=== PATIENT | male | born 2005 | race Caucasian/White ===

== ENCOUNTER 2025-03-25 14:05 | Emergency (ER) | payer SELFPAY ==
[2025-03-25] VITALS (9 sets, daily range): BP systolic 109–166; BP diastolic 59–90; PULSE 88–108; RESP 18–24; TEMP 37.1; O2SAT 96–97; BMI 27.1
--- NOTE | 2025-03-25 14:15 | ED_ITS ---
HPI - Psych General Chief Complaint: Toxicology Problem Stated Complaint: Shrooms and Cocaine Time Seen by Provider: 03/25/25 14:05 History of Present Illness HPI Narrative: This is a 19-year-old male brought in by ambulance accompanied by law enforcement. History provided by EMS and the patient, reviewed law enforcement reports as well. Reportedly he was on [facility] today took cocaine and mushrooms this morning. He was agitated, combative attempting get into the water EMS was called he required restraints and IM Versed and was transported to the hospital. On arrival here is alert and cooperative. Denies suicidal ideation. Admits using mushrooms and cocaine. States recently had a diagnosis of autism. States he has a history of suicidal ideation and depression. Patient was seen at 1405, immediately on arrival Related Data Allergies Allergy/AdvReac Type Severity Reaction Status Date / Time No Known Drug Allergies Allergy Verified 03/25/25 14:22 Exam Narrative Exam Narrative: Alert and cooperative, anxious affect. Clothing is wet. Normocephalic and atraumatic pupils are equal and reactive slightly dilated Oral mucosa is moist Neck is supple Lungs are clear Heart sounds regular rhythm rate tachycardic no murmur gallop Abdomen is benign Denying hallucinations or suicidal ideation Thought process is linear Appears to have intact insight and judgment Initial Vital Signs Initial Vital Signs: Vital Signs Pulse Rate 108 H 03/25/25 14:16 Respiratory Rate 22 03/25/25 14:16 Pulse Oximetry 96 03/25/25 14:16 Course Orders Ordered: ED Orders 03/25/25 14:13 EKG-12 Lead Stat 03/25/25 14:25 CBC Auto Diff [Complete Blood Count AUTO DIFF] Stat CMP [Comprehensive Metabolic Panel] Stat ETOH [Ethanol (ETOH)] Stat TSH [Thyroid Stimulating Hormone] Stat 03/25/25 15:02 Urine Drug Screen, Rapid Stat 03/25/25 15:39 Consult to BANQUET STEWARD - Podiatric Foot [facility] Ankle Specialist Stat Discontinued Medications Olanzapine (Olanzapine Odt 10 Mg Tab) 10 mg PO NOW ONE Stop: 03/25/25 14:14 Last Admin: 03/25/25 14:27 Dose: 10 mg Documented By: SGF Reevaluation(s) Reevaluation #1: At 3:40 p.m., patient is alert and cooperative. Appropriate affect. Medically cleared we will request social work to evaluate. Vital Signs Vital signs: Vital Signs - 8 hr 03/25/25 14:16 03/25/25 14:17 03/25/25 14:17 Temperature Pulse Rate 108 H 107 H Respiratory Rate 22 18 Blood Pressure 142/85 H Pulse Oximetry 96 97 Oxygen Delivery Method 03/25/25 14:22 03/25/25 14:30 03/25/25 14:30 Temperature 98.8 F Pulse Rate 106 H 103 H Respiratory Rate 22 20 Blood Pressure 142/85 H 147/85 H Pulse Oximetry 96 97 Oxygen Delivery Method Room Air 03/25/25 15:00 03/25/25 15:00 03/25/25 15:30 Temperature Pulse Rate 106 H Respiratory Rate 18 Blood Pressure 120/59 L 109/62 Pulse Oximetry 96 Oxygen Delivery Method 03/25/25 15:30 03/25/25 16:00 03/25/25 16:00 Temperature Pulse Rate 93 H 88 Respiratory Rate 22 19 Blood Pressure 118/73 Pulse Oximetry 96 96 Oxygen Delivery Method 03/25/25 16:30 03/25/25 16:30 03/25/25 16:51 Temperature Pulse Rate 101 H Respiratory Rate 24 Blood Pressure 164/90 H 166/81 H Pulse Oximetry 97 Oxygen Delivery Method 03/25/25 16:51 Temperature Pulse Rate 100 H Respiratory Rate 23 Blood Pressure Pulse Oximetry Oxygen Delivery Method MDM - Psych Lab Data Lab results narrative: Ethanol is negative, urine drug screen positive for THC and cocaine. Chemistry show potassium of 3.1 probably not clinically significant in this setting. 03/25/25 14:25 03/25/25 14:25 Labs: Lab Results 03/25/25 03/25/25 Range/Units 14:25 15:02 WBC 8.5 (4.5-11.0) X10^3/uL RBC 5.17 (4.5-5.9) X10^6/uL Hgb 15.5 (13.5-17.5) g/dL Hct 45.2 (41-53) % MCV 87.6 (80-100) fL MCH 30.0 (26-34) PG MCHC 34.2 (30-36) % RDW 12.8 (11.6-14.8) % Plt Count 184 (150-400) X10^3/uL Neut % (Auto) 74.4 (50-75) % Lymph % (Auto) 18.1 L (25-40) % [place] % (Auto) 5.9 (3-14) % Eos % (Auto) 0.9 L (2-4) % Baso % (Auto) 0.7 (0-2) % Neut # (Auto) 6300 (6590-2244) /uL Lymph # (Auto) 1500 (4671-0449) /uL [place] # (Auto) 500 (0-900) /uL Eos # (Auto) 100 (0-450) /uL Baso # (Auto) 100 (0-100) /uL Sodium 140 (137-145) mmol/L Potassium 3.1 L (3.4-5.1) mmol/L Chloride 104 (98-107) mmol/L Carbon Dioxide 24 (22-32) mmol/L BUN 12 (9-20) mg/dL Creatinine 0.78 (0.66-1.25) mg/dL Estimated GFR > 60 (>60) mL/min BUN/Creatinine Ratio 15.4 (6-22) Glucose 135 H (70-99) mg/dL Calcium 9.2 (8.4-10.2) mg/dL Total Bilirubin 1.3 (0.2-1.3) mg/dL AST 36 (17-59) IU/L ALT 39 (<50) IU/L Alkaline Phosphatase 115 (38-126) U/L Total Protein 8.2 (6.3-8.2) g/dL Albumin 5.0 (3.5-5.0) g/dL Globulin 3.2 (1.7-4.1) g/dL Albumin/Globulin Ratio 1.6 (1.0-2.8) TSH 0.686 (0.47-4.68) uIU/mL U Opiates 300ng/mL cut Negative (Negative) Ur Oxycodone Screen Negative (Negative) Urine Methadone Screen Negative (Negative) Ur Barbiturates Screen Negative (Negative) U Tricyclic Antidepress Negative (Negative) Ur Phencyclidine Scrn Negative (Negative) Ur Amphetamines Screen Negative (Negative) U Methamphetamines Scrn Negative (Negative) Ur MDMA Scrn (Ecstasy) Negative (Negative) U Benzodiazepines Scrn Negative (Negative) Urine Cocaine Screen Positive H (Negative) U Marijuana (THC) Screen Positive H (Negative) Urine pH Normal (Normal) Urine Specific [place] Normal (Normal) Ethyl Alcohol < 10 (<10) mg/dL Ur Creatinine Normal (Normal) MDM Narrative Medical decision making narrative: 19-year-old male brought in by EMS after being agitated in public after using cocaine and psychedelics mushrooms. After lorazepam and olanzapine he is much better, patient is fully oriented not hallucinating not suicidal and social work felt he was safe for discharge. He is discharged in the company of his boyfriend. Discharge Plan Departure Patient Disposition: Home Clinical Impression: Substance Abuse Activity Restrictions/Additional Instructions: Do not use mushrooms and cocaine. Follow up soon with your primary care provider. Recheck in the emergency department if you are having acute symptoms such as chest pain difficulty breathing or psychiatric emergency. Do not drive tonight as we gave you sedating medications Stand Alone Forms: Patient Portal/API
--- NOTE | 2025-03-25 14:26 | EKG_ITS ---
[address] [id number] Test Date: 2025-03-25 Pat Name: Marielena Gutiérrez Department: Room: Gender: Male Owner/Operator: : [id number] Requested By: Order Number: [id number] Reading MD: Danyel Hernández MD Measurements Intervals [place] Rate: 100 P: 57 MD: 138 QRS: 65 QRSD: 86 T: 17 QT: 338 QTc: 436 Interpretive Statements Sinus rhythm with frequent premature ventricular complexes Electronically Signed On 03-26-2025 8:31:17 PST by Danyel Hernández MD
[2025-03-25] MEDS: OLANZapine ODT 10 MG TAB PO (14:27)
[2025-03-25 14:35] LABS: Add Manual Diff / Slide Review NO; Hematocrit 45.2 % (41-53); Hemoglobin 15.5 g/dL (13.5-17.5); Lymphocytes Absolute Auto 1500 /uL (1100-4500); Mean Corpuscular HGB Conc 34.2 % (30-36); Mean Corpuscular Hemoglobin 30.0 PG (26-34); Mean Corpuscular Volume 87.6 fL (80-100); Platelet Count 184 X10^3/uL (150-400)
[2025-03-25 14:55] LABS: Alanine Aminotransferase 39 IU/L (<50); Albumin 5.0 g/dL (3.5-5.0); Albumin Globulin Ratio 1.6 (1.0-2.8); Alkaline Phosphatase 115 U/L (38-126); Blood Urea Nitrogen 12 mg/dL (9-20); Calcium 9.2 mg/dL (8.4-10.2); Carbon Dioxide 24 mmol/L (22-32); Chloride 104 mmol/L (98-107); Estimated Glomerular Filt Rate > 60 mL/min (>60); Ethanol (ETOH) < 10 mg/dL (<10); Globulin 3.2 g/dL (1.7-4.1); Glucose 135 mg/dL (70-99); HEMOLYSIS < 15 (0-50); Potassium 3.1 mmol/L (3.4-5.1); Sodium 140 mmol/L (137-145); Total Protein 8.2 g/dL (6.3-8.2)
[2025-03-25 15:14] LABS: Ur Specific Gravity Normal (Normal)
[2025-03-25 15:15] LABS: UR Morphine/Opiate cutoff 300 Negative (Negative); Urine MDMA Negative (Negative); Urine Methamphetamines Negative (Negative); Urine Tetrahydrocannabinol Positive (Negative); Urine Tricyclic Antidepressant Negative (Negative)
[2025-03-25 15:40] LABS: Thyroid Stimulating Hormone 0.686 uIU/mL (0.47-4.68)
--- NOTE | 2025-03-25 17:06 | CM.SWNOTE ---
ED TECHNICAL ACCOUNT REPRESENTATIVE Assessment Note: Pt is a 19yo male, resident of [place], is seen in the ED after an accidental overdose psychedelic mushrooms and cocaine. Reviewed chart and discussed with multidisciplinary team pt's medical status and initial discharge needs. Per Cliff Infante, pt was brought in on a protective custody order due to not being directable and a suspected harm to self. TECHNICAL ACCOUNT REPRESENTATIVE confirmed with independent beauty consultant that no other charges will be made today; printed independent beauty consultant report placed in pt chart. Per ED Provider, pt is medically cleared to discharge home if pt consents and has safe discharge plan. TECHNICAL ACCOUNT REPRESENTATIVE entered room to meet with patient, introduced self and role. Pt endorses regret with overconsumption of mushrooms and they do not recall the events of the bad trip that led to EMS being called. Pt states him and his partner were camping at [place] when this happened. Pt denies SI/HI, no history of attempts. They state they are on Venlafaxine and buspirone that is managed by their PCP. Pt gave consent for this TECHNICAL ACCOUNT REPRESENTATIVE to call partner, Aric. Pt declines any other needs at this time, they state they will follow up with their PCP if necessary. TECHNICAL ACCOUNT REPRESENTATIVE calls pt partner who states they are packing up their campsite and has plans to see pt in dept. TECHNICAL ACCOUNT REPRESENTATIVE notified partner that pt is medically cleared to dc home, partner states he will be able to pick up and delivery driver pt in the next hour. TECHNICAL ACCOUNT REPRESENTATIVE reviews this with ED provider, Dr. Barrera, who indicates agreement and understanding. Plan: Pt to discharge home with partner to transport. VALENTE Obando
== END 2025-03-25 17:04 | disposition home or self-care (01) ==
PROVIDERS: Emergency Provider Emergency Medicine
DX: F19.10 Other psychoactive substance abuse, uncomplicated (principal)
CPT/HCPCS: 80053; 80305; 80320; 84443; 85025; 93005; 99283; 99284